=== PATIENT | female | born 1975 | race Caucasian/White ===

== ENCOUNTER 2021-06-10 17:22 | Emergency (ER) | payer OTHER ==
[~2021-06-10] VITALS: Ht 160 cm; Wt 63.5 kg
[2021-06-10] MEDS ORDERED: BUSPIRONE HCL10 MG PO (17:32)
[2021-06-10] MEDS ORDERED: DICLOFENAC35 MG PO (17:32)
[2021-06-10 17:36] VITALS: BP 117/82
== END 2021-06-10 17:36 | disposition left against medical advice (07) ==
LOC: M.ERS 17:22 → EDBD 17:22 → M.ERS 17:36
DX: R22.0 Localized swelling, mass and lump, head (principal); H53.8 Other visual disturbances; Z53.21 Procedure and treatment not carried out due to patient leaving prior to being seen by health care provider